=== PATIENT | male | born 1995 | race American Indian/Alaskan Native ===

== ENCOUNTER 2018-10-08 15:35 | Emergency (ER) | payer OTHER ==
[~2018-10-08] VITALS: Ht 175.3 cm; Wt 106.6 kg
[2018-10-08] MEDS ORDERED: Ultram50 MG PO (16:36)
[2018-10-08] MEDS ORDERED: CYCL10 PO (16:36)
[2018-10-08] MEDS ORDERED: Voltaren100 GM TOP (16:36)
== END 2018-10-08 16:51 | disposition home or self-care (01) ==
LOC: ER 15:35
DX: M54.6 Pain in thoracic spine (principal); F17.200 Nicotine dependence, unspecified, uncomplicated
CPT/HCPCS: 72070; 96372; 99283-25; J1885

== ENCOUNTER 2019-12-29 19:49 | Emergency (ER) | payer SELFPAY ==
[~2019-12-29] VITALS: Ht 170.2 cm; Wt 129.3 kg
[~2019-12-29 19:49] MED LIST: CYCL10 PO; Ultram50 MG PO; Voltaren100 GM TOP
== END 2019-12-29 21:32 | disposition left against medical advice (07) ==
LOC: ER 19:49
DX: S60.212A Contusion of left wrist, initial encounter (principal); S80.01XA Contusion of right knee, initial encounter; M41.9 Scoliosis, unspecified; V49.9XXA Car occupant (driver) (passenger) injured in unspecified traffic accident, initial encounter
CPT/HCPCS: 73110; 73562-RT; 99283-25

== ENCOUNTER 2022-07-01 16:15 | Emergency (ER) | payer SELFPAY ==
[~2022-07-01] VITALS: Ht 177.8 cm; Wt 116.1 kg
== END 2022-07-01 18:16 | disposition home or self-care (01) ==
LOC: ER 16:15
DX: S60.440A External constriction of right index finger, initial encounter (principal); W49.04XA Ring or other jewelry causing external constriction, initial encounter; F17.200 Nicotine dependence, unspecified, uncomplicated
CPT/HCPCS: 20600; 99282-25

== ENCOUNTER 2024-11-12 06:27 | Emergency (ER) | payer OTHER ==
[~2024-11-12] VITALS: Ht 175.3 cm; Wt 103.4 kg
[2024-11-12 06:56] VITALS: BP 117/82
[2024-11-12 07:40] LABS: BASOPHILS ABSOLUTE AUTO 0.04 K/mm3 (0.00-0.23); BASOPHILS PERCENT AUTO 0 % (0-2); EOSINOPHILS ABSOLUTE AUTO 0.01 K/mm3 (0.00-0.68); EOSINOPHILS PERCENT AUTO 0 % (0-6); Hematocrit 39.2 % (37.0-53.0); Hemoglobin 13.5 g/dL (13.5-17.5); IMMATURE GRAN ABSOLUTE AUTO 0.06 K/mm3 (0.00-0.10); IMMATURE GRAN PERCENT AUTO 0 % (0-1); LYMPHOCYTES PERCENT AUTO 6 % (21-46); MONOCYTES ABSOLUTE AUTO 2.04 K/mm3 (0.16-1.47); MONOCYTES PERCENT AUTO 10 % (4-13); Mean Corpuscular HGB 31.9 pg (26.0-34.0); Mean Corpuscular HGB Conc 34.4 g/dL (31.5-36.5); Mean Corpuscular Volume 93 fL (80-100); Mean Platelet Volume 9.1 fL (9.1-12.4); NEUTROPHILS PERCENT AUTO 84 % (41-73); Platelet Count 371 K/mm3 (150-400); RDW Standard Deviation 44.3 fL (35.1-46.3); Red Blood Cell Count 4.23 M/mm3 (4.30-5.90); White Blood Cell Count 19.85 K/mm3 (4.00-11.30)
[2024-11-12 07:55] LABS: Albumin, Blood 3.5 g/dL (3.4-5.0); Albumin/Globulin Ratio 0.9 (0.8-1.8); Bilirubin, Total 1.2 mg/dL (0.1-1.0); Bun/Creatinine Ratio 25.8 (12.0-20.0); Calcium, Blood 9.3 mg/dL (8.5-10.1); Creatinine, Blood 0.58 mg/dL (0.60-1.20); Globulin, Blood 4.1 g/dL (2.2-4.0); Potassium, Blood 3.9 mmol/L (3.5-5.5); Total Protein, Blood 7.6 g/dL (6.4-8.2)
[2024-11-12] MEDS ORDERED: NS 1,000 ML IV SCH (09:35)
[2024-11-12] MEDS ORDERED: Ondansetron HCl 2 MG / ML 2ML Vial IV ONE (09:40)
[2024-11-12] MEDS ORDERED: Acetaminophen 500 MG Tab PO ONE (09:40)
[2024-11-12] MEDS ORDERED: ACET500 PO (10:12)
[2024-11-12] MEDS ORDERED: ONDA4 PO (10:12)
== END 2024-11-12 11:33 | disposition home or self-care (01) ==
LOC: ER 06:27
PROVIDERS: Student in an Organized Health Care Education/Training Program
DX: R10.13 Epigastric pain (principal); D72.829 Elevated white blood cell count, unspecified; F17.200 Nicotine dependence, unspecified, uncomplicated; Z59.00 Homelessness unspecified
CPT/HCPCS: 36415; 71046; 74177; 80053; 83690; 84484; 85025; 93005; 93010; 99285-25; A9270; J2405; J7030; Q9967